=== PATIENT | female | born 1945 | race Caucasian/White ===

== ENCOUNTER → 2016-11-03 | Outpatient (CLI) | payer OTHER | LOC: FIMAGING 10:14 | PROVIDERS: ATTEND Internal Medicine Rheumatology | DX: M81.0 Age-related osteoporosis without current pathological fracture (principal); Z87.81 Personal history of (healed) traumatic fracture ==

== ENCOUNTER → 2017-04-05 | Outpatient (CLI) | payer OTHER | LOC: CIMAGING 11:08 | PROVIDERS: ATTEND Family Medicine | DX: Z12.31 Encounter for screening mammogram for malignant neoplasm of breast (principal) | CPT/HCPCS: G0202 ==

== ENCOUNTER → 2017-07-29 | Outpatient (CLI) | payer OTHER | LOC: GIMAGING 16:32 | PROVIDERS: ATTEND Nurse Practitioner | DX: M19.021 Primary osteoarthritis, right elbow (principal) | CPT/HCPCS: 73080-PO ==

== ENCOUNTER → 2018-01-10 | Outpatient (CLI) | payer OTHER | LOC: GIMAGING 18:15 | PROVIDERS: ATTEND Registered Nurse | DX: M25.522 Pain in left elbow (principal); W01.0XXA Fall on same level from slipping, tripping and stumbling without subsequent striking against object, initial encounter | CPT/HCPCS: 73080-PO ==

== ENCOUNTER → 2018-05-23 | Outpatient (CLI) | payer OTHER | LOC: CIMAGING 09:45 | PROVIDERS: ATTEND Family Medicine | DX: Z12.31 Encounter for screening mammogram for malignant neoplasm of breast (principal) ==

== ENCOUNTER → 2018-12-19 | Outpatient (CLI) | payer OTHER | LOC: GIMAGING 12:15 | PROVIDERS: ATTEND Family Medicine | DX: M19.021 Primary osteoarthritis, right elbow (principal); S52.121D Displaced fracture of head of right radius, subsequent encounter for closed fracture with routine healing | CPT/HCPCS: 73080-PO ==

== ENCOUNTER → 2019-01-11 | Outpatient (CLI) | payer OTHER | LOC: FIMAGING 12:22 ==